=== PATIENT | male | born 1990 | race Caucasian/White ===

== ENCOUNTER 2020-07-03 17:02 | Emergency (ER) | payer OTHER ==
--- NOTE | 2020-07-03 18:03 | EDM.PDOC ---
ED HPI GENERAL MEDICAL PROBLEM - General Time Seen by Provider: 07/03/20 18:00 Source of Information: Reports: Patient History Limitations: Reports: No Limitations - History of Present Illness INITIAL COMMENTS - FREE TEXT/NARRATIVE: HISTORY AND PHYSICAL: History of present illness: The patient is a 29-year-old male who presents to the emergency room with complaints of right index finger pain after crushing the finger between fan of and myers shaft damper. The incident happened at around 11:45 AM and the patient worked until the end of his shift. He was able to use his hand as a normal he. He is left-handed. He states that the swelling has gotten worse throughout the day. Take anything [id number] for pain control. He has not applied ice or any other pain control measures. The patient rates his pain 7/10. The patient is unsure of his tetanus status. The patient denies any fever, chills, headache, change in vision, syncope or near syncope. Denies any chest pain, back pain, shortness of breath or cough. Denies any abdominal pain, nausea, vomiting, diarrhea, constipation or dysuria. Has not noted any blood in urine or stool. Patient has been eating and drinking appropriately. In the emergency department the patient is hemodynamically stable with a blood pressure of 136/86 and a heart rate of 64. Review of systems: As per history of present illness and below otherwise all systems reviewed and negative. Past medical history: As per history of present illness and as reviewed below otherwise noncontributory. Surgical history: As per history of present illness and as reviewed below otherwise noncontributory. Social history: See social history for further information Family history: As per history of present illness and as reviewed below otherwise noncontributory. Physical exam: General: Well developed and well nourished. Alert and orientated x 3. Nontoxic in appearance and in no acute distress. Vital signs are stable and have been reviewed by me. Nursing notes were reviewed. HEENT: Atraumatic, normocephalic, pupils equal and reactive bilaterally, negative for conjunctival pallor or scleral icterus, mucous membranes moist, TMs normal bilaterally, throat clear, neck supple, nontender, trachea midline. No drooling or trismus noted. No meningeal signs. No hot potato voice noted. Lungs: Clear to auscultation bilaterally. No wheezes, rales, or rhonchi. Chest nontender. Normal work of breathing, no accessory muscles used. Heart: S1S2, regular rate and rhythm without overt murmur, gallops, or rubs. No JVD. No peripheral edema Abdomen: Soft, nondistended, nontender. Normoactive bowel sounds. Negative for masses or costovertebral tenderness. Pelvis: Stable nontender. Genitourinary/Rectal: Deferred. Skin: Intact, warm, dry. No lesions or rashes noted. Hematologic: No petechiae or purpra. Mucosa appropriate color and normal nail bed color and refill. Extremities: Right index finger DIP and nail tender. Nail bed with < 1/4 black area. Flexion and extension DIP with tenderness. Moves all other extremities per self without difficulty or deficits, negative for cords or calf pain. Neurovascular unremarkable. Neuro: Awake, alert, oriented. Cranial nerves II through XII unremarkable. Cerebellum unremarkable. Motor and sensory unremarkable throughout. Exam nonfocal. Psychiatric: Mood and affect are appropriate. Normal thought process. Answering questions appropriately. Notes: *This patient was seen and evaluated during the 2019 SARS-CoV-2 novel coronavirus pandemic period. Community viral transmission is ongoing at time of this encounter and the emergency department is operating under pandemic response procedures. Examination and discussion the patient is agreeable to a finger x-ray, ibuprofen, tetanus. The right finger x-ray IMPRESSION: Nondisplaced distal tuft fracture 2nd digit. I will not apply a right index finger splint for comfort and stabilization until the patient has orthopedic follow-up. I will prescribe Keflex 500 mg twice daily for 10 days as this is considered an open fracture. The patient will take ibuprofen 600 mg every 8 hours as needed for pain. I will prescribe for 3 days for pain control. I have talked with the patient about today's findings, in addition to providing specific details for plan of care. Reassessment at the time of disposition demonstrates that the patient is in no acute distress. The patient is stable for discharge, counseling was provided and we discussed in great detail signs and symptoms that would prompt them to return to the Emergency Department. Medication, follow up and supportive care measures were reviewed and discussed. Voices understanding and is agreeable to plan of care. Denies any further questions or concerns at this time. Diagnostics: Right index finger x-ray Therapeutics: Ibuprofen, tetanus, Keflex, ight index finger splint for comfort and stabilization until the patient has orthopedic follow-up. Prescription: Flexeril 500 mg twice daily for 10 days Oceana 325/5 milligrams every 6 hours for pain Impression: Index finger fracture Plan: 1. You were evaluated today on an emergent basis. Your right index finger crush injury resulted in a fracture of the end of your finger. Due to the nature of the fracture you will need to be on Keflex 500 twice a day for 10 days. We will splint your finger and you will need to follow-up with orthopedic. I will provide the number for you.I prescribed you Oceana for pain control. You cannot drive or operate machinery for 12 hours after taking this medication. This medication can cause constipation so use a stool softener while taking it. 2. You can alternate Tylenol and ibuprofen as needed for pain and fever management. 3. We encourage you to follow up with your primary care provider and/or recommended specialist in the next few days for re-evaluation and further care/management. 4. If your symptoms should worsen, new symptoms develop or any of the signs and symptoms we discussed should arise please return to the emergency room or call 911 (if needed). Definitive disposition and diagnosis as appropriate pending reevaluation and review of above. right indexfinger Pain Score (Numeric/FACES): 6 - Related Data Allergies Allergy/AdvReac Type Severity Reaction Status Date / Time No Known Allergies Allergy Verified 07/03/20 18:07 Home Meds: Home Meds cephALEXin [Keflex] 500 mg PO BID #9 cap 07/03/20 [Rx] ED ROS GENERAL - Review of Systems Review Of Systems: Comprehensive ROS is negative, except as noted in HPI. ED EXAM, GENERAL - Physical Exam Exam: See Below (See dictation) Course - Vital Signs Last Recorded V/S: Last Vital Signs Temp 97.4 F 07/03/20 19:27 Pulse 51 L 07/03/20 19:27 Resp 16 07/03/20 19:27 BP 132/73 07/03/20 19:27 Pulse Ox 100 07/03/20 19:27 - Orders/Labs/Meds Meds: Medications Discontinued Medications Generic Name Dose Route Start Last Admin Trade Name Freq PRN Reason Stop Dose Admin Cephalexin 500 mg 07/03/20 19:06 07/03/20 19:24 Cephalexin 500 Mg Cap PO 07/03/20 19:07 500 mg ONETIME ONE Administration Diphtheria/Tetanus/Acell Pertussis 0.5 ml 07/03/20 18:10 07/03/20 18:28 Diphtheria,Pertussis(Acell),Tetanus Vaccine 0.5 Ml Syringe IM 07/03/20 18:11 0.5 ml .ONCE ONE Administration Ibuprofen 600 mg 07/03/20 18:10 07/03/20 18:27 Ibuprofen 600 Mg Tab PO 07/03/20 18:11 600 mg ONETIME ONE Administration Departure - Departure Time of Disposition: 19:10 Disposition: Home, Self-Care 01 Condition: Good Clinical Impression: Open fracture of tuft of distal phalanx of finger - Discharge Information *PRESCRIPTION DRUG MONITORING PROGRAM REVIEWED*: Not Applicable *COPY OF PRESCRIPTION DRUG MONITORING REPORT IN PATIENT EUNICE: Not Applicable Prescriptions: cephALEXin [Keflex] 500 mg PO BID #9 cap Instructions: Finger Fracture, Adult, [id number] Referrals: PCP,None [Primary Care Provider] - Forms: ED Department Discharge Additional Instructions: The following information is given to patients seen in the emergency department who are being discharged to home. This information is to outline your options for follow-up care. We provide all patients seen in our emergency department with a follow-up referral. The need for follow-up, as well as the timing and circumstances, are variable depending upon the specifics of your emergency department visit. If you don't have a primary care physician on staff, we will provide you with a referral. We always advise you to contact your personal physician following an emergency department visit to inform them of the circumstance of the visit and for follow-up with them and/or the need for any referrals to a consulting specialist. The emergency department will also refer you to a specialist when appropriate. This referral assures that you have the opportunity for follow-up care with a specialist. All of these measure are taken in an effort to provide you with optimal care, which includes your follow-up. Under all circumstances we always encourage you to contact your private physician who remains a resource for coordinating your care. When calling for follow-up care, please make the office aware that this follow-up is from your recent emergency room visit. If for any reason you are refused follow-up, please contact the [facility] Emergency Department at and asked to speak to the emergency department charge nurse. [facility] [address] [place] [id number] Plan: 1. You were evaluated today on an emergent basis. Your right index finger crush injury resulted in a fracture of the end of your finger. Due to the nature of t he fracture you will need to be on Keflex 500 twice a day for 10 days. We will splint your finger and you will need to follow-up with orthopedic. I will provide the number for you. I prescribed you Oceana for pain control. You cannot drive or operate machinery for 12 hours after taking this medication. This medication can cause constipation so use a stool softener while taking it. 2. You can alternate Tylenol and ibuprofen as needed for pain and fever management. 3. We encourage you to follow up with your primary care provider and/or recommended specialist in the next few days for re-evaluation and further care/management. 4. If your symptoms should worsen, new symptoms develop or any of the signs and symptoms we discussed should arise please return to the emergency room or call 911 (if needed).
[2020-07-03] MEDS ORDERED: Ibuprofen 600 MG Tab PO ONE (18:10)
[2020-07-03] MEDS ORDERED: Diphtheria,Pertussis(Acell),Tetanus Vaccine 0.5 ML Syringe IM ONE (18:10)
--- NOTE | 2020-07-03 18:44 | CR ---
INDICATION: Trauma TECHNIQUE: Three-views 2nd digit right hand COMPARISON: None FINDINGS: Bones: Nondisplaced distal tuft fracture 2nd digit. Joint spaces: Unremarkable. Soft tissues: Unremarkable. IMPRESSION: Nondisplaced distal tuft fracture 2nd digit. Dictated by Massimo Celeste MD @ 07/03/2020 6:42:[address] Massimo Celeste @ Jul 03 2020 6:42PM
[2020-07-03] MEDS ORDERED: Cephalexin 500 MG Cap PO ONE (19:06)
== END 2020-07-03 19:32 | disposition home or self-care (01) ==
LOC: MW.ED 17:02
DX: S62.630B Displaced fracture of distal phalanx of right index finger, initial encounter for open fracture (principal); Z23 Encounter for immunization; W23.0XXA Caught, crushed, jammed, or pinched between moving objects, initial encounter
CPT/HCPCS: 73140; 90471; 90715; 99283; A9270

== ENCOUNTER 2024-04-26 18:30 | Emergency (ER) | payer BC ==
[2024-04-26] MEDS: Lidocaine 4% Patch TOP STA (19:30)
[2024-04-26] MEDS: traMADol 50 MG Tab PO STA (19:30)
[2024-04-26] MEDS: Benzonatate 100 MG Cap PO STA (21:04)
== END 2024-04-26 21:12 | disposition home or self-care (01) ==
LOC: MW.ED 18:30
DX: R05.1 Acute cough (principal); F17.210 Nicotine dependence, cigarettes, uncomplicated; Z75.8 Other problems related to medical facilities and other health care
CPT/HCPCS: 71046; 87428; 87651; 99283; A9270